=== PATIENT | female | born 1990 | race Caucasian/White ===

== ENCOUNTER → 2016-09-14 | Outpatient (CLI) | payer OTHER | LOC: RAD 17:23 | DX: S90.32XA Contusion of left foot, initial encounter (principal) | CPT/HCPCS: 73630 ==

== ENCOUNTER → 2021-09-12 | Outpatient (CLI) | payer OTHER | LOC: KOH-I 10:04 | DX: M79.644 Pain in right finger(s) (principal); M79.641 Pain in right hand | CPT/HCPCS: 73110; 73130 ==